=== PATIENT | female | born 1940 | race African-American/Black ===

== ENCOUNTER → 2019-08-04 | Outpatient (CLI) | payer BC | END | disposition home or self-care (01) | LOC: PCVCCLINIC 11:00 | PROVIDERS: ATTEND Internal Medicine Cardiovascular Disease | DX: R07.9 Chest pain, unspecified (principal); R06.02 Shortness of breath; R53.83 Other fatigue; E10.69 Type 1 diabetes mellitus with other specified complication; R42 Dizziness and giddiness; E78.00 Pure hypercholesterolemia, unspecified; I10 Essential (primary) hypertension; M19.90 Unspecified osteoarthritis, unspecified site; K21.9 Gastro-esophageal reflux disease without esophagitis; E66.9 Obesity, unspecified; Z90.49 Acquired absence of other specified parts of digestive tract; Z90.710 Acquired absence of both cervix and uterus; Z79.899 Other long term (current) drug therapy; Z79.4 Long term (current) use of insulin; Z79.84 Long term (current) use of oral hypoglycemic drugs; Z87.891 Personal history of nicotine dependence; Z72.89 Other problems related to lifestyle | CPT/HCPCS: 36415; 80061; 93005; G0463 ==

== ENCOUNTER → 2019-08-05 | Outpatient (CLI) | payer BC ==
[~2019-08-05] MED LIST: REGADENOSON 0.4 MG/5 ML DISP.SYRIN. IV ONE
--- NOTE | 2019-08-06 10:25 | PCVCIMAG ---
APPROVED REPORT Study performed: 08/05/2019 08:06:48 EXAM: Comprehensive 2D, Doppler, and color-flow Echocardiogram Patient Location: Echo lab Room #: 2Status: routine BSA: 2.12 HR: 93 bpmBP: 140/76 mmHg Rhythm: NSR Other Information Study Quality: Adequate Risk Factors: Cardiac Risk Factors: HTN, Hyperlipidemia, DM Indications Diabetes Dyspnea Fatigue Chest Pain Hypertension/HDD 2D Dimensions IVSd: 11.31 (7-11mm)LVOT Diam: 22.13 (18-24mm) LVDd: 38.10 mm PWd: 12.48 (7-11mm)Ascending Ao: 32.06 (22-36mm) LVDs: 23.60 (25-40mm) Left Atrium: 38.58 (27-40mm) Aortic Root: 25.37 mm LV Single Plane 4CH: 55.90 % LV Single Plane 2CH: 56.79 % Biplane EF: 57.0 % Volumes Left Atrial Volume (Systole) Single Plane 4CH: 57.76 mLSingle Plane 2CH: 32.75 mL Biplane LA Volume: 47.00 mLLA ESV Index: 22.00 mL/m2 Aortic Valve AoV Peak Keith.: 0.98 m/s AO Peak Gr.: 3.85 mmHgLVOT Max P.05 mmHg LVOT Max V: 0.87 m/s NANDA Vmax: 3.42 cm2 Mitral Valve E/A Ratio: 0.4 MV Decel. Time: 78.42 ms MV E Max Keith.: 0.36 m/s MV A Keith.: 0.80 m/s MV PHT: 33.15 ms MVA (PHT): 6.64 cm2 IVRT: 173.01 ms TDI E/Lateral E': 12.00E/Medial E': 12.00 Medial E' Keith.: 0.03 m/s Lateral E' Keith.: 0.03 m/s Pulmonary Valve PV Peak Keith.: 0.84 m/sPV Peak Gr.: 2.79 mmHg Pulmonary Vein P Vein S: 0.70 m/sP Vein A: 0.63 m/s P Vein D: 0.35 m/sP Vein A Dur.: 93.4 msec P Vein S/D Ratio: 2.00 Tricuspid Valve TR Peak Keith.: 2.37 m/s TR Peak Gr.: 22.49 mmHg TV Vmax: 0.53 m/sPA Pressure: 29.00 mmHg Left Ventricle The left ventricle is normal size. There is normal LV segmental wall motion. Mild concentric left ventricular hypertrophy. Left ventricular systolic function is normal. The left ventricular ejection fraction is within the normal range. LVEF is 55-60%. Grade I - abnormal relaxation pattern. Findings suggest the left atrial pressure is elevated. Right Ventricle The right ventricle is normal size. The right ventricular systolic function is normal. Atria The left atrium size is normal. The right atrium size is normal. Aortic Valve Aortic valve is trileaflet. The aortic valve is normal in structure and function. No aortic regurgitation is present. There is no aortic valvular stenosis. Mitral Valve The anterior mitral valve leaflet is moderately thickened and hyperechoic but opens well. Trace mitral regurgitation. No evidence of mitral valve stenosis. Tricuspid Valve The tricuspid valve is normal in structure. Trace tricuspid regurgitation. Borderline pulmonary hypertension with a PA pressure of 29 mmHg. Pulmonic Valve The pulmonary valve is normal in structure. There is no pulmonic valvular regurgitation. Great Vessels The aortic root is normal in size. The ascending aorta is normal in size. Aortic arch is normal in caliber. IVC is normal in size and collapses >50% with inspiration. Pericardium There is no pericardial effusion. There is no pleural effusion. <Conclusion> The left ventricle is normal size. Mild concentric left ventricular hypertrophy. LVEF is 55-60%. Grade I - abnormal relaxation pattern. Findings suggest the left atrial pressure is elevated. The right ventricle is normal size. The left atrium size is normal. Aortic valve is trileaflet. The aortic valve is normal in structure and function. The anterior mitral valve leaflet is moderately thickened and hyperechoic but opens well. Trace mitral regurgitation. Trace tricuspid regurgitation. Borderline pulmonary hypertension with a PA pressure of 29 mmHg. The aortic root is normal in size. There is no pericardial effusion.
--- NOTE | 2019-08-06 10:32 | PCVCIMAG ---
APPROVED REPORT Imaging Protocol: Rest Tc-99m/Stress Tc-99m 1 day Study performed: 08/05/2019 09:13:10 Indication: CP Progressive, SOA, Pre-Syncope Patient Location: Out-Patient Stress Nurse: Eneida Mcarthur RN, Meena Mirza RN GA Tech:Fredo BRIGITTE MejíaMT Ht: 5 ft 7 in Wt: 223 lbs BSA: 2.12 m2 HR: 88 bpm BP: 180/91 mmHg BMI: 34.9 Rhythm: Sinus Rhythm Medical History Medical History: Age, DM (insulin), Former Tobacco User Medications: Simvastatin, Micardis Allergies: No known drug allergies Resting Data Rest SPECT myocardial perfusion imaging was performed in supine position 45 minutes following the intravenous injection of 10.8 mCi of Tc-99m Sestamibi. Time of rest injection: 904 Date: 08/05/2019 Administration Route: IV Administration Site: Left Hand Pharmacologic Stress Pharmacologic stress test was performed by injecting Regadenoson 0.4 mg IV push over 10-15 seconds immediately followed by the intravenous injection of 32.2 mCi of Tc-99m Sestamibi. Time of stress injection: 1029 Date: 08/05/2019 Administration Route: IV Administration Site: Left Hand Gated Stress SPECT was performed 45 minutes after stress injection. The images were gated to evaluate regional wall motion and calculate left ventricular ejection fraction. Stress Test Details Stress Test: Pharmacologic stress testing performed using 0.4 mg of regadenoson per 5 mL given IV over 10 seconds. Reason for pharmacologic stress test: arthritis. HRMax Heart Rate (APMHR): 142 bpm Resting HR: 88 bpmTarget HR (85% APMHR): 120 bpm Max HR Achieved: 117 bpm % of APMHR: 82 Recovery HR: 104 bpm BP Resting BP: 180/91 mmHg Max BP: 148/55 mmHg Recovery BP: 177/82 mmHg ECG Resting ECG: Sinus Rhythm Stress ECG: Sinus Tachycardia Arrhythmia: None Recovery ECG: Sinus Tachycardia Clinical Reason for Termination: Completed protocol Stress Symptoms: Dyspnea, Headache, Fatigue Symptoms resolved during recovery. Stress ECG Conclusion ECG: Non-ischemic Study Quality Study: Good Study Data Post stress, the left ventricular ejection was 70%.. SSS: 0 SRS: 1 SDS: 0 TID = 1.00. Perfusion No evidence of stress induced ischemia or prior myocardial infarction. Wall Motion Normal left ventricular size and function with no regional wall motion abnormalities. Nuclear Conclusion No evidence of stress induced ischemia or prior myocardial infarction. Normal left ventricular size and function with no regional wall motion abnormalities. Post stress, the left ventricular ejection was 70%. No prior study available for comparison. Interpreted by: Stevo Archuleta MD Electronically Approved: 08/05/2019 16:49:09 <Conclusion> ECG: Non-ischemic
== END | disposition home or self-care (01) ==
LOC: PCVCIMAG 08:22
PROVIDERS: ATTEND Internal Medicine Cardiovascular Disease
DX: I10 Essential (primary) hypertension (principal); E78.5 Hyperlipidemia, unspecified; E11.9 Type 2 diabetes mellitus without complications; R55 Syncope and collapse; R06.02 Shortness of breath; Z87.891 Personal history of nicotine dependence
CPT/HCPCS: 78452; 93017; 93306; A9500; J2785